=== PATIENT | male | born 1965 | race Caucasian/White ===

== ENCOUNTER 2018-10-19 08:21 | Day surgery (SDC) | payer OTHER, SELFPAY ==
[~2018-10-19] VITALS: Ht 190.5 cm; Wt 130.5 kg
[~2018-10-19 08:21] MED LIST: ALLO100 PO; Lopressor 25 mg25 MG PO; NAPR500 PO
--- NOTE | 2018-10-19 11:02 | NUR ---
10/19/18 1102 Charis Fofana PT DENIES A DESIRE TO DRINK ANYTHING IN STEP DOWN.
--- NOTE | 2018-10-19 12:37 | NUR ---
10/19/18 1237 Charis Fofana LATE ENTRY: AT BEGINNING OF CASE NOTICED HR IRREGULAR & JUMPED TO 140S MOMENTARILY. NOTIFIED, NO ORDERS RECEIVED. CHARGE NURSE INTO ROOM. PT RESTABLIZED TO NORMAL. DURING CASE O2 DESAT TO HIGH 80S, O2 TURNED TO 5L, JAW THRUST IMPLEMENTED. PT CONTINUED TO DESAT TO 60S. TRACI RN, AND CHARGE NURSE OCTOBER TO ROOM. 100 MM AIRWAY PLACED, PT AIRWAY BAG MASK VENTILATED. ANESTHESIA CALLED BY TECH. DR BREWER IMMEDIATELY TO ROOM. PT BACK TO 90S WITHIN [address] BREWER ASSESED PT, NO NEW ORDERS FROM DR. STEINER OR DR. BREWER. PT VSS TO STEP DOWN. DISCUSSED W/ DR. STEINER PT TO BE SCHEDULED MAC NEXT TIME.
== END 2018-10-19 11:00 | disposition home or self-care (01) ==
LOC: ORSCSDS 08:21
PROVIDERS: Surgery
PROC: 0DBN8ZX Excision of Sigmoid Colon, Via Natural or Artificial Opening Endoscopic, Diagnostic (ICD-10-PCS; principal; 2018-10-19 09:45)
DX: Z12.11 Encounter for screening for malignant neoplasm of colon (principal); D12.5 Benign neoplasm of sigmoid colon; Z87.891 Personal history of nicotine dependence
CPT/HCPCS: 88305; J7120

== ENCOUNTER 2024-07-19 09:29 | Day surgery (SDC) | payer BC ==
[~2024-07-19] VITALS: Ht 190.5 cm; Wt 147.2 kg
[~2024-07-19 09:29] MED LIST changes: +ALBU2.5V5 INH; +ATOR20 PO; +DUPIXENT P300 MG/2 M SQ; +Flonase 0.05% N16 GM; +Lactated Ringer's 1,000 ML IV SCH; +MONT10T PO; +REVATIO20 MG PO
[2024-07-19] MEDS ORDERED: MONT10T (10:26)
[2024-07-19] MEDS ORDERED: propofoL 40 ML IV ONE (10:55)
--- NOTE | 2024-07-19 11:03 | NUR ---
07/19/24 1103 Abdoul Prasad MONITOR INTACT WITH CONTINUOUS PULSE OXIMETRY, CONTINUOUS END TITAL CO2, AND INTERMITTENT BLOOD PRESSURE.AND EKG ANESTHESIA PER Jitendra ERAZO PLANIMETER OPERATOR
[2024-07-19 11:21] VITALS: BP 132/100
--- NOTE | 2024-07-19 11:24 | NUR ---
REPORT RECEIVED FROM ALEXA ANDERSON AND GREGORY STRANGE. PT ON RA. AFIB ON MONITOR. GREGORY AWARE. NO NEW ORDERS. HR 80S-90S. PT ABLE TO REPOSITION SELF IN BED. PT REQUESTING PO FLUIDS AND TOLERATING THEM WELL. PT DENIES PAIN, NAUSEA OR OTHER DISCOMFORTS.
[2024-07-19 11:31] VITALS: BP 130/84
== END 2024-07-19 11:44 | disposition home or self-care (01) ==
LOC: ORSCMMR 09:29 → ORD 11:00 → ORSCMMR 11:00
PROVIDERS: Surgery
PROC: 0DBN8ZX Excision of Sigmoid Colon, Via Natural or Artificial Opening Endoscopic, Diagnostic (ICD-10-PCS; principal; 2024-07-19 11:00)
DX: Z12.11 Encounter for screening for malignant neoplasm of colon (principal); K63.5 Polyp of colon; Z86.0100 Personal history of colon polyps, unspecified; G47.33 Obstructive sleep apnea (adult) (pediatric); I10 Essential (primary) hypertension; I48.91 Unspecified atrial fibrillation; E78.5 Hyperlipidemia, unspecified; E11.9 Type 2 diabetes mellitus without complications; E66.9 Obesity, unspecified; Z68.41 Body mass index [BMI] 40.0-44.9, adult; Z79.899 Other long term (current) drug therapy
CPT/HCPCS: 88305; J2704; J7120